=== PATIENT | female | born 1955 | race Caucasian/White ===

== ENCOUNTER → 2017-07-26 11:05 | Outpatient (CLI) | payer BC, SELFPAY ==
--- NOTE | 2017-07-26 11:12 | XR_ITS ---
XR ankle LT min 3V HISTORY: ITS.REASON: LT ANKLE PAIN ORDERING PHYSICIAN: Tammie Calzada PATIENT AGE: 62 years COMPARISON: None FINDINGS: No fracture or dislocation. No lytic or blastic change. There is normal mineralization.. The joint spaces are well-preserved. No significant degenerative/arthritic changes. No erosive changes evident. IMPRESSION: Negative ankle, no acute finding
== END ==
PROVIDERS: PCP Family Medicine; Visit Provider Nurse Practitioner
DX: M25.572 Pain in left ankle and joints of left foot (principal)
CPT/HCPCS: 73610

== ENCOUNTER 2017-08-02 09:19 | Outpatient (RCR) | payer BC, SELFPAY ==
--- NOTE | 2017-08-02 11:09 | HMH.PTOPEV ---
Rehab Outpatient Evaluation Rehab OP Evaluation Start: 08/02/17 09:35 Freq: Status: Active Protocol: Document 08/02/17 11:04 BENNY (Rec: 08/02/17 11:09 PHOAGUSTINA [id number]) Electronically Signed By Jonathon Becerra, PT 08/02/17 11:04 Outpatient Therapy Subjective History Subjective History Pt presents with c/o left ankle pain x 2-3 mos overall, but very severe episode ~ 1 wk with insidious onset. She had x-ray performed which was negative for any fxs or OA. She reports since that episode she has had no pain and is currently feeling fine. She has PMH of HTN. Chief Complaint Pain Symptom Type Sharp Symptoms Relieved By Nothing Symptoms Aggravated By Physical Activity Prior Functional Limitations None Current Functional Limitations None Symptom Description Intermittent Level of pain today (0-10) 0 Pain scale - at its worst (0-10) 9 Ankle/Foot Eval Gait Observation General Gait Pattern Observation No Deviations/Normal Assistive Device Ambulation Assistive Device None ROM left Ankle/Foot ROM Reason Not Measured Within Functional Limits Great Toe ROM Reason Not Measured Within Functional Limits MMT right Ankle Dorsiflexion Strength Grade 5 Normal Ankle Plantarflexion Strength Grade 5 Normal Foot Eversion Strength Grade 5 Normal Foot Inversion Strength Grade 5 Normal Special Tests Ankle Anterior Drawer Test Negative Left Ankle Eversion Test Negative Left Talar Tilt Test Negative Left Ankle Inversion (supination) Test Negative Left Ankle Posterior Drawer Test Negative Left Neuro tests Achilles Tendon (R) 2+ Achilles Tendon (L) 2+ Outpatient Therapy Assessment Impairments Problems/Impairmments Subjective C/O Pain Impaired Self Care/Self Management Prognosis Rehab Potential Good Clinical Impression Consistent with Diagnosis Yes Outpatient Therapy Plan of Care Frequency Times per week 0 Duration Number of Weeks 0 Addendums This patient is a candidate for social No or vocational rehab? Patient/Guardian verbally acknowledges Yes understanding of treatment program and consents to further treatment? Patient/Guardian verbally acknowledges Yes understanding of diagnosis, prognosis and goals for treatment? G -code Required No Eval Complexity PT Charges 97
== END 2017-08-02 09:20 | disposition home or self-care (01) ==
LOC: PT 09:19
PROVIDERS: Family Provider Family Medicine; PCP Family Medicine; Visit Provider Nurse Practitioner
DX: M25.572 Pain in left ankle and joints of left foot (principal)

== ENCOUNTER → 2017-09-04 12:38 | Outpatient (CLI) | payer BC, SELFPAY ==
[2017-09-04 12:44] LABS: Adenovirus F 40/41, stool Not Detected (NotDetected); Astrovirus Not Detected (NotDetected); Campylobacter Not Detected (NotDetected); Cryptosporidium Not Detected (NotDetected); Cyclospora Cayetanesis Not Detected (NotDetected); Entamoeba histolytica Not Detected (NotDetected); Enteroaggregative E coli Not Detected (NotDetected); Enteropathogenic E coli Not Detected (NotDetected); Enterotoxigenic E coli Not Detected (NotDetected); Giardia lamblia Not Detected (NotDetected); Norovirus Not Detected (NotDetected); Plesimonas Shigalloides, PCR Not Detected (NotDetected); Salmonella, PCR Not Detected (NotDetected); Sapovirus Not Detected (NotDetected); Shiga-like toxin E coli Not Detected (NotDetected); Shigella Enterovasive E coli Not Detected (NotDetected); Vibrio Cholerae Not Detected (NotDetected); Vibrio, PCR Not Detected (NotDetected); Yersinia Entercolitica, PCR Not Detected (NotDetected)
[2017-09-04 20:40] LABS: Clostridium Difficile A/B, PCR Detected (NotDetected); Rotavirus A Detected (NotDetected)
== END ==
PROVIDERS: Visit Provider Family Medicine
DX: R19.7 Diarrhea, unspecified (principal)
CPT/HCPCS: 87507

== ENCOUNTER → 2017-09-15 12:48 | Outpatient (CLI) | payer BC, SELFPAY ==
--- NOTE | 2017-09-15 12:52 | MR_ITS ---
MR ankle LT wo con CLINICAL INDICATION: Left ankle pain and instability ITS.REASON: LEFT ANKLE INSTABILITY ORDERING PHYSICIAN: Tammie Calzada PATIENT AGE: 62 years Comparison: 07/26/2018 TECHNIQUE: Routine multiplanar multiecho sequences are performed without contrast. The report is delayed waiting on repeat images are made available on 10/05/2017 FINDINGS: There is a small ankle joint effusion. No ligamentous or tendinous injury noted. No abnormal bone marrow signal intensity. No fracture or dislocation. There is no evidence of avascular necrosis of the talar dome. Small amount of fluid is noted along the lateral talonavicular region and also posteriorly at the talocalcaneal area. IMPRESSION: 1. No ligamentous or tendinous injuries apparent. No bone marrow edema or other bony anomalies evident. 2. Small ankle joint effusion with small amount fluid along the talonavicular area and talocalcaneal region suggesting bursitis
== END ==
PROVIDERS: Family Provider Family Medicine; PCP Family Medicine; Visit Provider Nurse Practitioner
DX: M25.372 Other instability, left ankle (principal)
CPT/HCPCS: 73721

== ENCOUNTER → 2017-10-11 07:55 | Outpatient (CLI) | payer BC, SELFPAY | PROVIDERS: Visit Provider Nurse Practitioner Family | DX: R19.7 Diarrhea, unspecified (principal); A04.72 Enterocolitis due to Clostridium difficile, not specified as recurrent | CPT/HCPCS: 87045; 87493 ==

== ENCOUNTER → 2019-07-05 09:36 | Outpatient (CLI) | payer MEDICARE, BC, SELFPAY ==
--- NOTE | 2019-07-05 09:42 | XR_ITS ---
PROCEDURE: XR SHOULDER LT MIN 2V CLINICAL INDICATION: left shoulder Pain COMPARISON: No exams were available for comparison FINDINGS: No fracture, dislocation, lytic change, or blastic change evident. No significant degenerative change IMPRESSION: No acute findings. Dictated by: Dago Diaz MD 07/05/2019 11:36 Electronically signed by Dago Diaz MD in [facility] 07/05/2019 11:36
== END ==
PROVIDERS: PCP Family Medicine; Visit Provider Orthopaedic Surgery
DX: M25.512 Pain in left shoulder (principal)
CPT/HCPCS: 73030

== ENCOUNTER → 2021-05-06 16:15 | Outpatient (CLI) | payer MEDICARE, BC, SELFPAY | PROVIDERS: Visit Provider Nurse Practitioner | DX: Z20.822 Contact with and (suspected) exposure to COVID-19 (principal) | CPT/HCPCS: C9803; U0003; U0005 ==

== ENCOUNTER → 2021-09-11 11:03 | Outpatient (CLI) | payer MEDICARE, BC, SELFPAY | PROVIDERS: Visit Provider Ophthalmology | DX: Z01.812 Encounter for preprocedural laboratory examination (principal); Z11.52 Encounter for screening for COVID-19 | CPT/HCPCS: C9803; U0003; U0005 ==

== ENCOUNTER 2021-09-14 06:24 | Day surgery (SDC) | payer MEDICARE, BC, SELFPAY ==
[2021-09-09 13:50] VITALS: BMI 27.4
[2021-09-14] VITALS (9 sets, daily range): BP systolic 141–164; BP diastolic 65–82; PULSE 62–78; RESP 16–18; TEMP 36.6–36.7; O2SAT 97–100
== END 2021-09-14 08:13 | disposition home or self-care (01) ==
LOC: OR 06:25
PROVIDERS: PCP Nurse Practitioner Family; Visit Provider Ophthalmology
DX: H25.813 Combined forms of age-related cataract, bilateral (principal); H53.149 Visual discomfort, unspecified; H02.831 Dermatochalasis of right upper eyelid; H02.834 Dermatochalasis of left upper eyelid; I10 Essential (primary) hypertension; E78.5 Hyperlipidemia, unspecified; I49.9 Cardiac arrhythmia, unspecified; M19.90 Unspecified osteoarthritis, unspecified site; E03.9 Hypothyroidism, unspecified; Z79.899 Other long term (current) drug therapy; Z87.891 Personal history of nicotine dependence; Z72.89 Other problems related to lifestyle
CPT/HCPCS: 66984; V2632

== ENCOUNTER → 2021-09-25 09:08 | Outpatient (CLI) | payer MEDICARE, BC, SELFPAY | PROVIDERS: Visit Provider Ophthalmology | DX: Z01.812 Encounter for preprocedural laboratory examination (principal); Z20.822 Contact with and (suspected) exposure to COVID-19 | CPT/HCPCS: C9803; U0003; U0005 ==

== ENCOUNTER 2021-09-28 06:22 | Day surgery (SDC) | payer MEDICARE, BC, SELFPAY ==
[2021-09-28 06:43] VITALS: BP 139/68; PULSE 73; RESP 18; TEMP 36.6; O2SAT 96; BMI 27.4
[2021-09-28 08:02] VITALS: BP 155/75; PULSE 69; RESP 18; O2SAT 95
[2021-09-28 08:07] VITALS: BP 148/72; PULSE 66; RESP 18; O2SAT 100
[2021-09-28 08:12] VITALS: BP 148/77; PULSE 65; RESP 18; O2SAT 100
[2021-09-28 08:15] VITALS: BP 144/73; PULSE 67; RESP 18; O2SAT 100
[2021-09-28 08:20] VITALS: BP 148/80; PULSE 60; RESP 16; TEMP 36.6; O2SAT 97
== END 2021-09-28 08:26 | disposition home or self-care (01) ==
LOC: OR 06:24
PROVIDERS: PCP Nurse Practitioner Family; Visit Provider Ophthalmology
DX: H25.813 Combined forms of age-related cataract, bilateral (principal); H02.831 Dermatochalasis of right upper eyelid; H02.834 Dermatochalasis of left upper eyelid
CPT/HCPCS: 66984; V2632

== ENCOUNTER → 2022-07-22 07:38 | Outpatient (CLI) | payer MEDICARE, BC, SELFPAY ==
[2022-07-22 07:43] LABS: Microscopic, Urine URINE MICROSCOPIC (MICROSCOPIC)
[2022-07-22 07:59] LABS: Appearance,Urine CLEAR (Clear); Basophils # 0.1 K/mm3 (0-0.2); Basophils % 1.1 % (0.1-2.0); Bilirubin,Urine Negative (Negative); Blood, Urine Negative (Negative); Color,Urine YELLOW (Yellow); Eosinophils # 0.3 K/mm3 (0.0-0.4); Eosinophils % 4.5 % (0.1-12.0); Glucose,Urine (UA) Negative (Negative); Hematocrit 42.2 % (37.0-47.0); Ketones,Urine Negative (Negative); Leukocyte Esterase,Urine 1+ (Negative); Lymphocytes # 2.4 K/mm3 (0.7-4.5); Lymphocytes % 31.2 % (10-50); Mean Corpuscular HGB Conc 33.1 g/dL (31.8-35.4); Mean Corpuscular Hemoglobin 29.6 pg (27.0-31.2); Mean Corpuscular Volume 89.5 fl (81-99); Mean Platelet Volume 7.7 fl (7.4-10.4); Monocytes # 0.4 K/mm3 (0.1-1.0); Monocytes % 4.8 % (1.7-9.3); Neutrophils # 4.5 K/mm3 (1.8-7.8); Neutrophils % 58.4 % (37.0-80.0); Nitrate,Urine Negative (Negative); Platelet Count 357 K/mm3 (142-424); Protein,Urine Negative (Negative); Red Blood Count 4.72 M/mm3 (4.20-5.40); Red Cell Distribution Width 13.7 % (11.5-17.5); Urobilinogen,Urine 0.2 EU/dl (0.2); White Blood Count 7.7 K/mm3 (4.8-10.8)
[2022-07-22 08:11] LABS: Bacteria,Urine Trace /lpf; Squamous Epithelial Cell,Urine Occasional #/hpf (0-5); WBC,Urine Occasional #/hpf (0-3)
[2022-07-22 08:19] LABS: Alanine Aminotransferase 43 U/L (12-78); Albumin Level 4.2 g/dl (3.5-5.0); Albumin/Globulin Ratio 1.8 (1.1-1.8); Alkaline Phosphatase 92 U/L (38-126); Aspartate Amino Transferase 34 U/L (14-36); Bilirubin,Total 0.8 mg/dl (0.2-1.3); Blood Urea Nitrogen 16 mg/dl (7-17); Calcium 9.4 mg/dl (8.4-10.2); Carbon Dioxide 32 mmol/L (22.0-30.0); Chloride 101 mmol/L (98-107); Chol/HDL Ratio 2.9 (1-3.5); Cholesterol 167 mg/dl (140-200); Estimated Glomerular Filt Rate 71 ml/min (>60); GFR (African American) 86 ML/MIN (>60); Globulin 2.3 g/dL (1.3-3.2); Glucose 102 mg/dl (74-100); HDL Cholesterol 58 mg/dl (40-60); Sodium 138 mmol/L (136-145); Total Protein,Serum 6.5 g/dl (6.3-8.2); Triglycerides 117 mg/dl (30-150); VLDL Cholesterol 23 mg/dL (0-40)
[2022-07-22 08:30] LABS: Direct LDL Cholesterol 86.55 mg/dL (100-129)
[2022-07-22 08:35] LABS: 25-OH Vitamin D, Total 46.4 ng/mL (30-100)
== END ==
PROVIDERS: PCP Family Medicine; Visit Provider Family Medicine
DX: E03.9 Hypothyroidism, unspecified (principal); I10 Essential (primary) hypertension; E78.5 Hyperlipidemia, unspecified; N32.81 Overactive bladder; M85.80 Other specified disorders of bone density and structure, unspecified site; Z00.00 Encounter for general adult medical examination without abnormal findings; R82.90 Unspecified abnormal findings in urine
CPT/HCPCS: 36415; 80053; 80061; 81001; 82306; 84443; 85025; 87086

== ENCOUNTER → 2022-09-05 07:46 | Outpatient (CLI) | payer MEDICARE, BC, SELFPAY | PROVIDERS: PCP Family Medicine; Visit Provider Family Medicine | DX: I10 Essential (primary) hypertension (principal) | CPT/HCPCS: 36415; 84443 ==

== ENCOUNTER → 2022-09-30 15:07 | Outpatient (CLI) | payer MEDICARE, BC, SELFPAY ==
--- NOTE | 2022-09-30 15:07 | MM_ITS ---
PROCEDURE INFORMATION: Exam: MG Bilateral Screening 3D Mammography Exam date and time: 09/30/2022 2:59 PM Age: 67 years old Clinical indication: Screening. No family history of breast cancer. TECHNIQUE: Imaging protocol: Bilateral Screening tomosynthesis and 2D mammography including computer-aided detection (CAD) when performed. COMPARISON: 1. MG MY Digital Nicolas Screen BILAT 08/11/2021 10:05 AM 2. MG MY Digital Nicolas Screen BILAT 07/21/2020 10:46 AM Both are apparently corrupted files which significantly limits comparison. FINDINGS: MAMMOGRAPHY: Breast composition: The breasts are heterogeneously dense, which may obscure small masses. Mass: Lobulated 1.5 cm mass with macro calcification in the inner right breast appears stable since 07/21/2020. Architectural distortion: None. Calcifications: No suspicious calcifications. Asymmetric density: None. Skin thickening: None. Axillary adenopathy: None. IMPRESSION: No mammographic evidence of malignancy. Annual screening is recommended unless otherwise clinically indicated. ASSESSMENT: BI-RADS Category 2: Benign
== END ==
PROVIDERS: PCP Family Medicine; Visit Provider Family Medicine
DX: Z12.31 Encounter for screening mammogram for malignant neoplasm of breast (principal)
CPT/HCPCS: 77063; 77067

== ENCOUNTER → 2023-03-17 08:06 | Outpatient (CLI) | payer MEDICARE, BC, SELFPAY ==
[2023-03-17 08:10] LABS: Microscopic, Urine URINE MICROSCOPIC (MICROSCOPIC)
[2023-03-17 09:34] LABS: Alanine Aminotransferase 28 U/L (12-78); Albumin Level 4.3 g/dl (3.5-5.0); Albumin/Globulin Ratio 1.7 (1.1-1.8); Alkaline Phosphatase 99 U/L (38-126); Anion Gap 10.9 mEq/L (5-15); Aspartate Amino Transferase 34 U/L (14-36); Bilirubin,Total 0.8 mg/dl (0.2-1.3); Blood Urea Nitrogen 16 mg/dl (7-17); Calcium 9.8 mg/dl (8.4-10.2); Carbon Dioxide 33 mmol/L (22.0-30.0); Chloride 99 mmol/L (98-107); Chol/HDL Ratio 3.1 (1-3.5); Cholesterol 172 mg/dl (140-200); Estimated Glomerular Filt Rate 55 ml/min (>60); GFR (African American) 67 ML/MIN (>60); Globulin 2.5 g/dL (1.3-3.2); Glucose 101 mg/dl (74-100); HDL Cholesterol 56 mg/dl (40-60); Potassium 3.9 mmoL/L (3.5-5.1); Sodium 139 mmol/L (136-145); Total Protein,Serum 6.8 g/dl (6.3-8.2); Triglycerides 121 mg/dl (30-150); VLDL Cholesterol 24 mg/dL (0-40)
[2023-03-17 09:45] LABS: Direct LDL Cholesterol 83.34 mg/dL (100-129)
[2023-03-17 10:03] LABS: Thyroid Stimulating Hormone 5.82 uIU/mL (0.465-4.68)
[2023-03-17 11:34] LABS: Appearance,Urine CLEAR (Clear); Bilirubin,Urine Negative (Negative); Blood, Urine Negative (Negative); Color,Urine YELLOW (Yellow); Glucose,Urine (UA) Negative (Negative); Ketones,Urine Negative (Negative); Leukocyte Esterase,Urine TRACE (Negative); Nitrate,Urine Negative (Negative); Protein,Urine Negative (Negative); Specific Gravity, Urine 1.025 (1.005-1.030); Urobilinogen,Urine 0.2 EU/dl (0.2)
[2023-03-17 11:56] LABS: Bacteria,Urine Trace /lpf; Squamous Epithelial Cell,Urine Occasional #/hpf (0-5); WBC,Urine Occasional #/hpf (0-3)
== END ==
PROVIDERS: PCP Internal Medicine; Visit Provider Family Medicine
DX: I10 Essential (primary) hypertension (principal); N32.81 Overactive bladder; Z13.6 Encounter for screening for cardiovascular disorders; E03.9 Hypothyroidism, unspecified; Z79.899 Other long term (current) drug therapy
CPT/HCPCS: 36415; 80053; 80061; 81001; 84443

== ENCOUNTER 2023-06-02 08:07 | Outpatient (CLI) | payer MEDICARE, BC, SELFPAY ==
[2023-06-02 09:10] LABS: Free T4 (Free Thyroxine) 1.39 ng/dl (0.78-2.19)
[2023-06-02 09:23] LABS: Thyroid Stimulating Hormone 5.81 uIU/mL (0.465-4.68)
== END 2023-06-02 23:59 ==
PROVIDERS: PCP Internal Medicine; Visit Provider Internal Medicine
DX: E03.9 Hypothyroidism, unspecified (principal); Z13.29 Encounter for screening for other suspected endocrine disorder
CPT/HCPCS: 36415; 84439; 84443

== ENCOUNTER 2023-10-03 16:48 | Outpatient (CLI) | payer MEDICARE, BC, SELFPAY ==
[2023-10-03 17:19] LABS: Basophils # 0.1 K/mm3 (0-0.2); Basophils % 0.6 % (0.1-2.0); Eosinophils # 0.2 K/mm3 (0.0-0.4); Eosinophils % 2.6 % (0.1-12.0); Hematocrit 40.5 % (37.0-47.0); Hemoglobin 13.6 g/dL (12.2-16.2); Lymphocytes # 2.6 K/mm3 (0.7-4.5); Lymphocytes % 30.4 % (10-50); Mean Corpuscular HGB Conc 33.5 g/dL (31.8-35.4); Mean Corpuscular Hemoglobin 30.5 pg (27.0-31.2); Mean Corpuscular Volume 91.2 fl (81-99); Mean Platelet Volume 8.7 fl (7.4-10.4); Monocytes # 0.4 K/mm3 (0.1-1.0); Monocytes % 4.3 % (1.7-9.3); Neutrophils # 5.3 K/mm3 (1.8-7.8); Neutrophils % 62.2 % (37.0-80.0); Platelet Count 324 K/mm3 (142-424); Red Blood Count 4.44 M/mm3 (4.20-5.40); Red Cell Distribution Width 13.8 % (11.5-17.5); White Blood Count 8.4 K/mm3 (4.8-10.8)
[2023-10-03 17:42] LABS: Alanine Aminotransferase 25 U/L (12-78); Albumin Level 4.3 g/dl (3.5-5.0); Albumin/Globulin Ratio 1.6 (1.1-1.8); Alkaline Phosphatase 108 U/L (38-126); Anion Gap 11.3 mEq/L (5-15); Aspartate Amino Transferase 32 U/L (14-36); Bilirubin,Total 0.7 mg/dl (0.2-1.3); Blood Urea Nitrogen 17 mg/dl (7-17); Calcium 9.9 mg/dl (8.4-10.2); Carbon Dioxide 32 mmol/L (22.0-30.0); Chloride 98 mmol/L (98-107); Estimated Glomerular Filt Rate 55 ml/min (>60); GFR (African American) 66 ML/MIN (>60); Globulin 2.7 g/dL (1.3-3.2); Glucose 93 mg/dl (74-100); Potassium 4.3 mmoL/L (3.5-5.1); Sodium 137 mmol/L (136-145)
[2023-10-03 18:00] LABS: T4 (Thyroxine) 7.4 ug/dl (5.53-11.0)
[2023-10-03 18:33] LABS: Vitamin B12 923 pg/mL (239-931)
[2023-10-05 08:32] LABS: Triiodothyronine (T3) Free 2.5 pg/mL (2.0-4.4)
== END 2023-10-03 23:59 | disposition home or self-care (01) ==
LOC: LAB.DROPOF 16:49
PROVIDERS: PCP Nurse Practitioner Family; Visit Provider Nurse Practitioner Family
DX: E03.9 Hypothyroidism, unspecified (principal); M85.80 Other specified disorders of bone density and structure, unspecified site; I10 Essential (primary) hypertension; E78.5 Hyperlipidemia, unspecified; K21.9 Gastro-esophageal reflux disease without esophagitis; E55.9 Vitamin D deficiency, unspecified
CPT/HCPCS: 80053; 82306; 82607; 84436; 84443; 84481; 85025

== ENCOUNTER 2023-10-10 14:08 | Outpatient (CLI) | payer MEDICARE, BC, SELFPAY ==
--- NOTE | 2023-10-10 14:08 | US_ITS ---
FINAL REPORT CLINICAL HISTORY: HTN FINDINGS: Limited sonographic images of the abdominal aorta were obtained. The abdominal aorta measures up to 1 9 cm. There is no evidence of abdominal aortic aneurysm. IMPRESSION: No evidence of abdominal aortic aneurysm. Reviewed, Interpreted and Dictated by Tam Bhatia III, MD Transcribed by Doreen Regan Authenticated and [facility]
--- NOTE | 2023-10-10 14:28 | CA_ITS ---
FINAL REPORT TECHNIQUE: Color Doppler, duplex Doppler and lundberg scale sonography of the bilateral neck arterial vasculature was performed. Velocities were measured in the carotid arteries. Stenosis evaluation based on the validated velocity criteria. CLINICAL HISTORY: DIZZINESS,HTN FINDINGS: The peak systolic velocity of the right common carotid artery is 68 cm/s. The peak systolic velocity of the right internal carotid artery is 112 cm/s and end diastolic velocity 36 cm/s. The ICA/CCA ratio is 1.8. A small amount of plaque is present. The right external carotid artery is patent. The right vertebral artery is patent with antegrade flow. The peak systolic velocity of the left common carotid artery is 83 cm/s. The peak systolic velocity of the left internal carotid artery is 110 cm/s and end diastolic velocity 42 cm/s. The ICA/CCA ratio is 1.3. A small amount of plaque is present. The left external carotid artery is patent.The left vertebral artery is patent with antegrade flow. IMPRESSION: Less than 50% bilateral carotid stenoses. Bilateral patent vertebral arteries with antegrade flow. If indicated, CTA or MRA could further evaluate. Reviewed, Interpreted and Dictated by Tam Bhatia III, MD Transcribed by Doreen Regan Authenticated and [facility]
== END 2023-10-10 23:59 | disposition home or self-care (01) ==
LOC: RAD 14:08
PROVIDERS: PCP Nurse Practitioner Family; Visit Provider Nurse Practitioner Family
DX: I10 Essential (primary) hypertension (principal); E78.5 Hyperlipidemia, unspecified; R42 Dizziness and giddiness
CPT/HCPCS: 76705; 93880

== ENCOUNTER 2023-11-03 08:10 | Outpatient (CLI) | payer MEDICARE, BC, SELFPAY ==
--- NOTE | 2023-11-03 08:10 | MM_ITS ---
PROCEDURE INFORMATION: Exam: MG Bilateral Screening 3D Mammography Exam date and time: 11/03/2023 8:06 AM Age: 68 years old Clinical indication: Screening mammogram. TECHNIQUE: Imaging protocol: Bilateral Screening tomosynthesis and 2D mammography including computer-aided detection (CAD) when performed. COMPARISON: 08/11/2021, 09/30/2022 FINDINGS: MAMMOGRAPHY: Breast composition: There are scattered areas of fibroglandular density. Mass: Stable benign-appearing subcentimeter nodules are present in the lower outer anterior right breast. No new or morphologically suspicious nodule has developed to suggest malignancy. Architectural distortion: No new or suspicious architectural distortion. Calcifications: No new or suspicious calcifications are present Asymmetric density: No new or suspicious asymmetric density is present Skin thickening: None. Axillary adenopathy: None. IMPRESSION: No mammographic evidence of malignancy. Recommend annual screening mammography unless otherwise clinically indicated. ASSESSMENT: BI-RADS category 2: Benign.
--- NOTE | 2023-11-03 08:45 | XR_ITS ---
FINAL REPORT CLINICAL HISTORY: Osteopenia COMPARISON: None FINDINGS: Using L1-4, the bone mineral density of the spine is 1.116 g/cm2, corresponding to T-score of 0.6 which is within normal limits. Using the left hip, the bone mineral density of the femoral neck is 0.824 g/cm2, corresponding to a T-score of -1.0 which is borderline osteopenic. Using the right hip, the bone mineral density of the femoral neck is 0.758 g/cm2, corresponding to a T-score of -0.8 which is within normal limits. FRAX not reported because all T-scores at or above -1.0. NOTE: T-score: Standard deviation compared with peak bone mass of young adult mean. *Following the recommendations of the International Society of Bone densitometry, classification of hip BMD is based on the lower of two T-scores; total hip or femoral neck. IMPRESSION: Normal bone mineral density of the lumbar spine and hips, borderline osteopenic on the left. Reviewed, Interpreted and Dictated by Mora Ernandez MD Transcribed by Za Lomeli Authenticated and [facility]
== END 2023-11-03 23:59 | disposition home or self-care (01) ==
LOC: RAD 08:10
PROVIDERS: PCP Nurse Practitioner Family; Visit Provider Nurse Practitioner Family
DX: Z12.31 Encounter for screening mammogram for malignant neoplasm of breast (principal); M85.89 Other specified disorders of bone density and structure, multiple sites
CPT/HCPCS: 77063; 77067; 77080

== ENCOUNTER 2024-01-01 13:04 | Outpatient (CLI) | payer MEDICARE, BC, SELFPAY ==
[2024-01-01 13:51] LABS: T4 (Thyroxine) 9.7 ug/dl (5.53-11.0)
[2024-01-01 14:05] LABS: Thyroid Stimulating Hormone 2.45 uIU/mL (0.465-4.68)
[2024-01-02 08:19] LABS: Triiodothyronine (T3) Free 2.6 pg/mL (2.0-4.4)
== END 2024-01-01 23:59 | disposition home or self-care (01) ==
LOC: LAB.DROPOF 13:05
PROVIDERS: PCP Nurse Practitioner Family; Visit Provider Nurse Practitioner Family
DX: E03.9 Hypothyroidism, unspecified (principal)
CPT/HCPCS: 84436; 84443; 84481

== ENCOUNTER 2024-01-03 07:38 | Outpatient (CLI) | payer MEDICARE, BC, SELFPAY ==
--- NOTE | 2024-01-03 07:39 | US_ITS ---
FINAL REPORT CLINICAL HISTORY: ruq pain FINDINGS: ULTRASOUND RIGHT UPPER QUADRANT Sonographic imaging of the right upper quadrant was obtained. The pancreas is partially obscured. The liver is unremarkable. There is no evidence of gallstones. There is no gallbladder wall thickening. There is no biliary ductal dilatation. The common duct is normal at 2 mm. Limited images of the right kidney are unremarkable. IMPRESSION: Unremarkable right upper quadrant ultrasound. Reviewed, Interpreted and Dictated by Vikash Camp MD Transcribed by Fariba Hayward Authenticated and [facility]
== END 2024-01-03 23:59 | disposition home or self-care (01) ==
LOC: RAD 07:39
PROVIDERS: PCP Nurse Practitioner Family; Visit Provider Nurse Practitioner Family
DX: R10.11 Right upper quadrant pain (principal); R11.0 Nausea
CPT/HCPCS: 76705

== ENCOUNTER 2024-03-21 14:35 | Outpatient (CLI) | payer MEDICARE, BC, SELFPAY ==
--- NOTE | 2024-03-21 14:42 | XR_ITS ---
FINAL REPORT CLINICAL HISTORY: low back pain x 1 week hx arthritis FINDINGS: PELVIS 1 view was obtained. There is no acute fracture or dislocation. The joint spaces are intact. There is no soft tissue abnormality. IMPRESSION: No acute bony abnormality. Reviewed, Interpreted and Dictated by Tam Bhatia III, MD Transcribed by Fariba Hayward Authenticated and [facility]
--- NOTE | 2024-03-21 14:42 | XR_ITS ---
FINAL REPORT CLINICAL HISTORY: low back pain x 1 week hx arthritis FINDINGS: LUMBAR SPINE 3 views were obtained. There is no acute fracture. Vertebrae are normal height. There are moderate and severe degenerative changes. Dextroscoliosis is noted. There is vacuum phenomenon at several levels. Soft tissues are unremarkable. IMPRESSION: Degenerative changes with no acute bony abnormality. Reviewed, Interpreted and Dictated by Tam Bhatia III, MD Transcribed by Fariba Hayward Authenticated and [facility]
== END 2024-03-21 23:59 | disposition home or self-care (01) ==
LOC: RAD 14:38
PROVIDERS: PCP Internal Medicine; Visit Provider Internal Medicine
DX: M54.50 Low back pain, unspecified (principal); M25.559 Pain in unspecified hip
CPT/HCPCS: 72100; 72170

== ENCOUNTER 2024-04-10 12:48 | Outpatient (CLI) | payer MEDICARE, BC, SELFPAY ==
--- NOTE | 2024-04-10 12:49 | MR_ITS ---
FINAL REPORT CLINICAL HISTORY: Low back pain, bulging disk. BILATERAL LEG PAIN AND NUMBNESS COMPARISON: None FINDINGS: Multiplanar MR imaging of the lumbar spine was performed without contrast. Mild rightward curvature is noted of the lumbosacral spine. On the sagittal T2-weighted images, disc degeneration is seen throughout. There is mild anterolisthesis of L3 on L4. Endplate changes are seen at multiple levels. No bony mass is identified. The conus has an unremarkable appearance. T12-L1: There is no significant canal stenosis or neuroforaminal narrowing. L1-2: Annular disc bulge and facet arthropathy. There is no significant canal stenosis or neural foraminal narrowing. L2-3: Annular disc bulge, facet arthropathy, and osteophytes. Mild bilateral neuroforaminal narrowing. L3-4: Annular disc bulge, facet arthropathy, and osteophytes. Mild right and moderate left neuroforaminal narrowing. L4-5: Annular disc bulge and facet arthropathy. Left foraminal disc protrusion. Mild right and severe left neuroforaminal narrowing. L5-S1: Annular disc bulge, facet arthropathy, and osteophytes. Moderate bilateral neuroforaminal narrowing IMPRESSION: Multilevel degenerative disc disease and spondylosis as described. L4-5 disc protrusion with severe left neuroforaminal narrowing. Reviewed, Interpreted and Dictated by Tam Bhatia III, MD Transcribed by Za Lomeli Authenticated and [facility]
== END 2024-04-10 23:59 | disposition home or self-care (01) ==
LOC: RAD 12:49
PROVIDERS: PCP Internal Medicine; Visit Provider Internal Medicine
DX: M51.360 Other intervertebral disc degeneration, lumbar region with discogenic back pain only (principal)
CPT/HCPCS: 72148

== ENCOUNTER 2024-04-16 15:51 | Outpatient (CLI) | payer MEDICARE, BC, SELFPAY ==
--- NOTE | 2024-04-16 15:54 | XR_ITS ---
PROCEDURE INFORMATION: Exam: XR Right Shoulder Exam date and time: 04/16/2024 4:06 PM Age: 69 years old Clinical indication: Pain; Shoulder; Right; Additional info: Shoulder pain TECHNIQUE: Imaging protocol: Radiologic exam of the right shoulder. Views: 2 or more views. COMPARISON: CR XR SHOULDER RT MIN 2V 04/16/2024 4:06 PM FINDINGS: Bones/joints: The glenohumeral joint shows mild joint space narrowing. There are small osteophytes at the joint margins, particularly at the inferior aspect of the humeral head and the glenoid. Subchondral sclerosis is noted at the humeral head and glenoid. The acromioclavicular (AC) joint also demonstrates mild joint space narrowing and small osteophytes. No acute fracture or dislocation is identified. The visualized portions of the ribs, scapula, and clavicle are intact and demonstrate normal bone density. Soft tissues: The soft tissues appear unremarkable. No evidence of significant soft tissue swelling or calcification. IMPRESSION: 1. Mild degenerative changes of the glenohumeral and acromioclavicular joints consistent with early osteoarthritis. 2. No evidence of acute osseous injury or significant soft tissue abnormality.
--- NOTE | 2024-04-16 15:54 | XR_ITS ---
PROCEDURE INFORMATION: Exam: XR Left Shoulder Exam date and time: 04/16/2024 4:06 PM Age: 69 years old Clinical indication: Pain; Shoulder; Left; Additional info: Shoulder pain TECHNIQUE: Imaging protocol: Radiologic exam of the left shoulder. Views: 2 or more views. COMPARISON: CR XR SHOULDER LT MIN 2V 07/05/2019 9:43 AM FINDINGS: Bones/joints: The glenohumeral joint shows mild joint space narrowing. There are small osteophytes at the joint margins, particularly at the inferior aspect of the humeral head and the glenoid. Subchondral sclerosis is noted at the humeral head and glenoid. The acromioclavicular (AC) joint also demonstrates mild joint space narrowing and small osteophytes. No acute fracture or dislocation is identified. The visualized portions of the ribs, scapula, and clavicle are intact and demonstrate normal bone density. Soft tissues: The soft tissues appear unremarkable. No evidence of significant soft tissue swelling or calcification. IMPRESSION: 1. Mild degenerative changes of the glenohumeral and acromioclavicular joints consistent with early osteoarthritis. 2. No evidence of acute osseous injury or significant soft tissue abnormality.
[2024-04-16 17:44] LABS: Erythrocyte Sedimentation Rate 135 mm/hr (0-30)
[2024-04-16 18:12] LABS: Uric Acid 5.2 mg/dl (2.5-6.2)
[2024-04-18 13:30] LABS: Antinuclear Antibodies (ANA) Negative (Negative)
[2024-04-19 09:18] LABS: Antinuclear Antibodies, IFA Negative (.)
== END 2024-04-16 23:59 | disposition home or self-care (01) ==
LOC: LAB 15:52
PROVIDERS: PCP Internal Medicine; Visit Provider Internal Medicine
DX: M25.511 Pain in right shoulder (principal); M25.512 Pain in left shoulder; R11.0 Nausea; M79.643 Pain in unspecified hand; R53.83 Other fatigue
CPT/HCPCS: 73030; 84550; 85651; 86038; 86431

== ENCOUNTER 2024-04-23 15:00 | Outpatient (RCR) | payer MEDICARE, BC, SELFPAY ==
--- NOTE | 2024-04-23 15:53 | HMH.RHREAS ---
Rehab Reassessment Rehab OP Re-assessment Start: 03/26/24 15:02 Freq: Status: Active Protocol: Document 04/23/24 14:55 JOSELIN (Rec: 04/23/24 15:52 JERRODMALINI [id number]) E-signed By Karmen Renteria, PT Oswestry Index Section 1 Pain Intensity The pain comes and goes and is very mild Section 2 Personal Care (Washing,Dresing) my way of washing or dressing even though it causes some pain Section 3 Lifting I can lift heavy weights, but it gives me extra pain Section 4 Walking I have some pain when walking but it does not increase with distance Section 5 Sitting I can sit in my favorite chair for as long as I like Section 6 Standing I can stand as long as I want without pain Section 7 Sleeping I get pain in bed, but it does not prevent me from sleeping well Section 8 Social Life Pain has no significant effect on my social life apart from limiting Section 9 Traveling I get some pain when traveling , but none of my usual forms of travel m Section 10 Changing Degreee of Pain My pain is getting better Score and Risk Level Oswestry Sc 8 Oswestry Risk Level Mild Disability Rehab Re-assessment Subjective Subjective Pt reports she feels 75% improved in regards to LBP. Pt reports she is no longer experiencing radiating pain into her leg and only experiences stiffness of the low back after periods of prolonged inactivity. Pt reports her back gets stiff after prolonged sitting but quickly improves with walking or stretching. Pt reports LBP at worst as 2/10 on VAS within the last week. Pt reports her shoulders, wrist and hands are now bothering her more than her back. Objective Objective Notes Palpation: no TTP of low back musculature or motion segments noted Lumbar AROM: flex 90, ext 18, LF 12 Hip strength: 4+/5 grossly Assessment Progress Assessment Progressing as Expected Assessment Notes Pt has attended 7 PT treatment sessions consisting of aerobic exercise, lumbar mobility, LE/core strengthening, LE stretching, manual therapy and modalities with good tolerance. Pt demonstrated improved subjective report of pain, lumbar AROM, hip strength and GISELA score this date compared to the initial evaluation. Overall the pt has met all PT goals and is appropriate to discharge to independent [facility]. Patient goals met ST LT/4 Goals Not Met n/a Revised Goals n/a Plan Plan Discharge to independent [facility] Time and Billing Re-Eval Time 12 Re-Eval Billing Units 0 Charge for PT reassessment? No Charge for OT reassessment? No PHYSICIAN CERTIFICATION: I certify the specified therapy services for Barbi Adams are required, authorized, and reviewed every 30 days.
== END 2024-04-23 23:59 | disposition home or self-care (01) ==
LOC: PT 15:00
PROVIDERS: Visit Provider Internal Medicine
DX: M54.50 Low back pain, unspecified (principal); M25.551 Pain in right hip; M25.552 Pain in left hip
CPT/HCPCS: 97014; 97110; 97163; G0283

== ENCOUNTER 2024-04-25 10:42 | Outpatient (CLI) | payer MEDICARE, BC, SELFPAY ==
[2024-04-26 10:12] LABS: Magnesium 2.1 mg/dl (1.6-2.3)
[2024-04-26 10:47] LABS: Ferritin 88.4 ng/ml (11.1-264)
== END 2024-04-25 23:59 | disposition home or self-care (01) ==
LOC: LAB.DROPOF 04-26 10:43
PROVIDERS: PCP Internal Medicine; Visit Provider Internal Medicine
DX: M25.531 Pain in right wrist (principal); M25.532 Pain in left wrist; G25.81 Restless legs syndrome; R53.83 Other fatigue; R11.0 Nausea; Z79.899 Other long term (current) drug therapy; M79.641 Pain in right hand; M25.511 Pain in right shoulder
CPT/HCPCS: 82728; 83735

== ENCOUNTER 2024-06-06 13:40 | Outpatient (CLI) | payer MEDICARE, SELFPAY ==
--- NOTE | 2024-06-06 13:46 | XR_ITS ---
FINAL REPORT CLINICAL HISTORY: Hand/wrist pain COMPARISON: None FINDINGS: RIGHT HAND Two views of the right hand were obtained. There is no acute fracture or dislocation. There is mild DIP and PIP joint space narrowing consistent with osteoarthritis. There is no acute soft tissue abnormality. IMPRESSION: Findings consistent with osteoarthritis. Reviewed, Interpreted and Dictated by Vikash Camp MD Transcribed by Ondina Coats Authenticated and [facility]
--- NOTE | 2024-06-06 13:46 | XR_ITS ---
FINAL REPORT CLINICAL HISTORY: Hand/wrist pain COMPARISON: None FINDINGS: LEFT HAND Two views of the left hand were obtained. There is no acute fracture or dislocation. There are moderate hypertrophic changes of osteoarthritis at the second and third DIP joints consistent with osteoarthritis. There is no acute soft tissue abnormality. IMPRESSION: Findings consistent with osteoarthritis. Reviewed, Interpreted and Dictated by Vikash Camp MD Transcribed by Ondina Coats Authenticated and [facility]
== END 2024-06-06 23:59 | disposition home or self-care (01) ==
LOC: RAD 13:43
PROVIDERS: PCP Internal Medicine; Visit Provider Internal Medicine
DX: M25.531 Pain in right wrist (principal); M25.532 Pain in left wrist; M25.541 Pain in joints of right hand; M25.542 Pain in joints of left hand
CPT/HCPCS: 73120

== ENCOUNTER 2024-12-23 14:21 | Outpatient (CLI) | payer MEDICARE, SELFPAY ==
--- OUTSIDE RECORDS SUMMARY | 2024-12-23 14:25 | XMS_ITS | Clinical Summary ---
Author Organization [facility] Address [address] [facility] [place] [address] Phone Care Team Providers Care Program Engineer Name Role Phone Unavailable Primary Care Provider Unavailabl e Social History Tobacco Use Types Packs/Day Years Used Date Smoking Tobacco: Never Assessed Comments Unknown Sex and Gender Information Value Date Recorded Sex Assigned at Not on file Legal Sex Female 8:34 AM EDT Gender Identity Not on file Sexual Orientation Not on file Plan of Treatment Health Maintenance Due Date Last Done Comments Annual Wellness Exam 1956 Hepatitis C Screening 1971 DTaP/TDaP/Td (1 - Tdap) 1972 Cologuard 1998 Colon Cancer Screening 1998 Colonoscopy 1998 FIT 1998 Sigmoidoscopy 1998 Virtual Colonography 1998 Pneumococcal Vaccine 50+ (1 of 1 - PCV) 2003 Zoster (1 of 2) 2003 Bone Density Screening 2018 COVID-19 Vaccine (2023-2 5 season) 2024 Influenza Vaccine (#1) 2025 Hepatitis B Vaccine Aged Out No longe r eligible based on patient's age to complete this topic Meningococcal B Vaccine Aged Out No l onger eligible based on patient's age to complete this topic
--- OUTSIDE RECORDS SUMMARY | 2024-12-23 14:25 | XMS_ITS | Clinical Summary ---
Author Organization [facility] Address [address] [place] [address] Care Team Providers Care Entry Specialist Name Role Phone James Miguel MD Primary Care Provider + Allergies No known active allergies Medications aspirin 81 MG EC tablet Take 81 mg by mouth Daily. Active Multiple Vitamin (MULTI VITAMIN DAILY PO) Take by mouth. Active bisoprolol (ZEBeta) 2.5 MG half tablet Take 2.5 mg by mouth Daily. Active calcium carbonate-vitami n d (CALCIUM 600+D) 600-400 MG-UNIT per tablet Take 1 tablet by mouth Daily. Active Probiotic Product (PROBIOTIC-10 PO) Take 1 tablet by mouth Daily. Active omeprazole (priLOSEC) 20 MG capsule Take 20 mg by mouth As Needed. Active valsartan-hydroc hlorothiazide (DIOVAN-HCT) 160-12.5 MG per tablet Take 1 tablet by mouth Daily. 07/15/2021 Active rosuvastatin (CRESTOR) 10 MG tablet Take 10 mg by mouth Daily. 07/11/2021 Active Active Problems Problem Noted Date Diagnosed Date Osteopenia of left femoral neck 07/13/2020 Fibrocystic breast changes, bilateral 07/13/2020 OAB (overactive bladder) 03/06/2018 PVC (premature ventricular contraction) Menopause Hypertension Atrophic vaginitis Resolved Problems Problem Noted Date Diagnosed Date Resolved Date Vaginal atrophy 08/03/2016 07/13/2020 Osteopenia 07/13/2020 Atrophic vaginitis 7 Family History Medical History Relation Name Comments Colon cancer Father Relation Name Status Comments Father Social History Tobacco Use Types Packs/Day Years Used Date Smoking Tobacco: Former Smokeless Tobacco: Never Alcohol Use Standard Drinks/Week Comments Yes 0 (1 standard drink = 0.6 oz pur e alcohol) occasionally Abuse Screen Answer Date Recorded Unsafe at Home or Work/School Not on file Feels Threatened by Someone? Not on file 01/2023 Does Anyone Keep You from Co ntacting Others or Doint Things Outside the Home? Not on file 02/13/2023 Physical Sign of Abuse Present Not on file 1 Housing Stability Answer Date Recorded Current Living Arrangements Not on file 01/2023 Potentially Unsafe Housing Conditions Not on noemi e 02/13/2023 Family and Community Support Answer Eliezer e Recorded Help with Day-to-Day Activities Not on file 02/13/2023 Lonely or Isolated Not on file 02/13/2023 Employment Answer Date Recorded Do you want help finding or keeping work or a jesse b? Not on file 02/13/2023 Disabilities Answer Date Recorded Concentrating, Remembering, or Making Decisions Difficulty Not on file 02/13/2023 Doing Errands Independently Difficulty Not on fi le 02/13/2023 Education Answer Date Recorded Help with school or training? Not on file Preferred Language Not on file 02/13/2023 Comments No Sex and Gender Information Value Date Recorded Sex Assigned at Not on file Legal Sex Female 10:04 AM EDT Gender Identity Not on file Sexual Orientation Not on file Last Filed Vital Signs Vital Sign Reading Time Taken Comments Blood Pressure 160/78 07/19/2021 10:09 AM EDT Pulse - - Temperature 36.9 C (98.4 F) 07/13/2020 3:27 PM EST Respiratory Rate - - Oxygen Saturation - - Inhaled Oxygen Concentration - - Weight 74 kg (163 lb 3.2 oz) 07/19/2021 10:09 AM EDT Height 163.8 cm (5' 4.5 ) 07/19/2021 10:09 AM ED T Body Mass Index 27.58 07/19/2021 10:09 AM EDT Plan of Treatment Health Maintenance Due Date Last Done Comments TDAP/TD VACCINES (1 - Tdap) 1972 COLOGUARD 1998 COLON CANCER SCREENING 5 YEJanneth Murphy SIGMOIDOSCOPY 1998 COLONOSCOPY 1998 [address] CANCER SCREENING 1998 CT COLONOGRAPHY 1998 FECAL OCCULT BLOOD TEST 1998 FIT Testing (1 year) 1998 Pneumococcal Vaccine 50+ (1 of 1 - PCV) 2003 ANNUAL PHYSICAL 06/29/2016 HEPATITIS C SCREENING 06/29/2016 ZOSTER VACCINE (2 of 2) 09/21/2020 07/27/2020 DXA SCAN 08/12/2023 08/11/2021, 08/03/2016 MAMMOGRAM 08/12/2023 08/11/2021, 04/0 10/2021, 07/21/2020, Additional history exists COVID-19 Vaccine ( - 2023-2 5 season) 2024 01/13/2021, 07/03/2020, 06/10/2020 INFLUENZA VACCINE 02/05/2025 02/21/2022, , 02/15/2021, Additional history exists Procedures Procedure Name Priority Date/Time Associated Diagnosis Comments SCANNED - MAMMO 07/21/2020 DEXA BONE DENSITY AXIAL Routine 08/03/2016 10:13 AM EDT Osteopenia from Last 3 Months or Most Recently Relevant to Health Maintenance Results * SCANNED - MAMMO (07/21/2020) Anatomical Region Laterality Modality Other Jonathan Nelson MD CHART REVIEW TABS Winnie l Result * dexa bone density axial (08/03/2016 10:13 AM EDT) Anatomical Region Laterality Modality Wrist, Hip, L-spine N/A Other 08/03/2016 3:07 PM EDT Impressions 08/03/2016 3:09 PM EDT The patient has low bone mass or osteopenia based on the right femoral neck T score. The ten year fracture risk assessment is calculated at 8.4% for major systemic osteoporotic fracture and 0.7% for a hip fracture. Less than 3% risk in the [place] for hip fracture and less than 20% risk of any systemic osteoporotic fracture is considered less than the threshold for where pharmacological therapy is recommended by the National Osteoporosis Foundation. All the treatment decisions require clinical judgment and consideration of individual patient factors, including patient preferences, co-morbidities, previous drug use, risk factors not captured in the FRAX model (frailty, falls, vitamin D deficiency, increased bone turnover, interval significant decline in bone density) and possible under or over estimation of fracture risk by FRAX. Approaches to reduce osteoporosis related fracture risk include optimizing calcium and vitamin D status, appropriate weight bearing exercises and fall-prevention measurements. The National Osteoporosis Foundation recommends (http://www.nof.org/hcp/practice/xjfhvzpu-jok-eivczslc-guidelines/clinic ans-guide) that FDA-approved medical therapies be considered in postmenopaual women and men aged equal or greater than 50 years with : a) hip or vertebral (clinical or morphometric) fracture; b) T-score of -2.5 or less at the spine or hip; c) Ten-year fracture probability by FRAX of greater than 3% for hip fracture of greater than 20% for major osteoporotic fracture. Secondary causes of bone loss should be evaluated if clinically indicated since the etiology of low BMD cannot be determined by BMD measurement alone. FOLLOWUP: Consider repeating the study in 2-3 years to reassess the patient's status or sooner if there is some new clinical indication. INTERVAL CHANGE: Compared to the prior exam done on 07/20/2011 there has been no statistically significant change for measurements involving the lumbar spine or the right total hip. There has been a statistically significant 5.7% change for measurements involving the right femoral neck region.. At this facility, the least significant change in the BMD at the lumbar spine with 95% confidence is 0.0010 g/cm2. The least significant change in the BMD at the femoral neck with 95% confidence is 0.014 g/cm2. The least significant change in the BMD at the total femur with 95% confidence is 0.012 g/cm2. This report was finalized on 08/03/2016 3:[address] Kary Benitez MD. Narrative 08/03/2016 3:09 PM EDT DUAL-ENERGY X-RAY ABSORPTIOMETRY (DXA) INDICATION: 61-year-old postmenopausal patient. The patient reports taking vitamin D and calcium. The patient reports a history of having taken glucocorticoids. COMPARISON: 07/20/2011 PROCEDURE: A BMD test was performed using the [employer] DXA System manufactured by [employer]. The lumbar spine was evaluated as well as the right total hip. The T-score compares the patient's bone mineral density with the peak bone mass of young normal patients. According to criteria established by the World Health Organization, patients with T-scores between 1.0 and 2.5 standard deviations BELOW the mean are osteopenic (low bone mass). Patients with T-scores EQUAL TO OR GREATER than 2.5 standard deviations below the mean are osteoporotic. The Z-score compares the patient bone mineral density with age and sex matched peers. According to the International Society for Clinical Densitometry's 2007 consensus conference: In women prior to menopause and men less than age 50, Z-scores, not T-scores are preferred. A Z-score of -2.0 or lower is defined as below the expected range for age and a Z-score above -2.0 is within the expected range for age. The WHO diagnostic criteria may be applied in women in the menopausal transition. Osteoporosis cannot be diagnosed in men under age 50 on the basis of BMD alone. TECHNICAL QUALITY: The study is of good technical quality. RESULTS: Lumbar Spine: The BMD measured in the L1-L4 region is 1.324 g/cm2. The average T-score is 1.2. The Z-score is 2.5. Total Hip: The BMD measured at the right total proximal femur is 0.913 g/cm2. The T-score is -0.8. The Z-score is 0.2. Femoral Neck: The BMD measured at the right femoral neck is 0.847 g/cm2. The T-score is -1.4. The Z-score is -0.1. Procedure Note Kary Benitez MD - 08/03/2016 DUAL-ENERGY X-RAY ABSORPTIOMETRY (DXA) INDICATION: 61-year-old postmenopausal patient. The patient reports taking vitamin D and calcium. The patient reports a history of having taken glucocorticoids. COMPARISON: 07/20/2011 PROCEDURE: A BMD test was performed using the [employer] DXA System manufactured by [employer]. The lumbar spine was evaluated as well as the right total hip. The T-score compares the patient's bone mineral density with the peak bone mass of young normal patients. According to criteria established by the World Health Organization, patients with T-scores between 1.0 and 2.5 standard deviations BELOW the mean are osteopenic (low bone mass). Patients with T-scores EQUAL TO OR GREATER than 2.5 standard deviations below the mean are osteoporotic. The Z-score compares the patient bone mineral density with age and sex matched peers. According to the International Society for Clinical Densitometry's 2007 consensus conference: In women prior to menopause and men less than age 50, Z-scores, not T-scores are preferred. A Z-score of -2.0 or lower is defined as below the expected range for age and a Z-score above -2.0 is within the expected range for age. The WHO diagnostic criteria may be applied in women in the menopausal transition. Osteoporosis cannot be diagnosed in men under age 50 on the basis of BMD alone. TECHNICAL QUALITY: The study is of good technical quality. RESULTS: Lumbar Spine: The BMD measured in the L1-L4 region is 1.324 g/cm2. The average T-score is 1.2. The Z-score is 2.5. Total Hip: The BMD measured at the right total proximal femur is 0.913 g/cm2. The T-score is -0.8. The Z-score is 0.2. Femoral Neck: The BMD measured at the right femoral neck is 0.847 g/cm2. The T-score is -1.4. The Z-score is -0.1. IMPRESSION: The patient has low bone mass or osteopenia based on the right femoral neck T score. The ten year fracture risk assessment is calculated at 8.4% for major systemic osteoporotic fracture and 0.7% for a hip fracture. Less than 3% risk in the [place] for hip fracture and less than 20% risk of any systemic osteoporotic fracture is considered less than the threshold for where pharmacological therapy is recommended by the National Osteoporosis Foundation. All the treatment decisions require clinical judgment and consideration of individual patient factors, including patient preferences, co-morbidities, previous drug use, risk factors not captured in the FRAX model (frailty, falls, vitamin D deficiency, increased bone turnover, interval significant decline in bone density) and possible under or over estimation of fracture risk by FRAX. Approaches to reduce osteoporosis related fracture risk include optimizing calcium and vitamin D status, appropriate weight bearing exercises and fall-prevention measurements. The National Osteoporosis Foundation recommends (http://www.nof.org/hcp/practice/pbngazou-obc-trslzicc-guidelines/clinic ans-guide) that FDA-approved medical therapies be considered in postmenopaual women and men aged equal or greater than 50 years with : a) hip or vertebral (clinical or morphometric) fracture; b) T-score of -2.5 or less at the spine or hip; c) Ten-year fracture probability by FRAX of greater than 3% for hip fracture of greater than 20% for major osteoporotic fracture. Secondary causes of bone loss should be evaluated if clinically indicated since the etiology of low BMD cannot be determined by BMD measurement alone. FOLLOWUP: Consider repeating the study in 2-3 years to reassess the patient's status or sooner if there is some new clinical indication. INTERVAL CHANGE: Compared to the prior exam done on 07/20/2011 there has been no statistically significant change for measurements involving the lumbar spine or the right total hip. There has been a statistically significant 5.7% change for measurements involving the right femoral neck region.. At this facility, the least significant change in the BMD at the lumbar spine with 95% confidence is 0.0010 g/cm2. The least significant change in the BMD at the femoral neck with 95% confidence is 0.014 g/cm2. The least significant change in the BMD at the total femur with 95% confidence is 0.012 g/cm2. This report was finalized on 08/03/2016 3:[address] Kary Benitez MD. Jonathan Nelson MD [facility] [place]XA ORDERABLES Final Result from Last 3 Months or Most Recently Relevant to Health Maintenance Insurance MEDICARE A & B Member Subscriber Plan / Payer (Ef fective 2018-Present) Name:Barbi Adams Member ID:[id number] Relation to Subscriber:Self Name:Barbi Adams Subscriber ID:[id number] Payer ID:[id number] Group ID:Not on file Type:Not on file Address: [address] Care Teams Entry Specialist Relationship Specialty Start Date End Date James Miguel MD PCP - General 07/29/15
--- NOTE | 2024-12-23 14:45 | MM_ITS ---
PROCEDURE INFORMATION: Exam: MG Bilateral Screening 3D Mammography Exam date and time: 12/23/2024 2:48 PM Age: 69 years old Clinical indication: Screening examination. TECHNIQUE: Imaging protocol: Bilateral Screening tomosynthesis and 2D mammography including computer-aided detection (CAD) when performed. COMPARISON: MG MM DIG SCREENING MAMM BI W/CAD 11/03/2023 8:06 AM FINDINGS: MAMMOGRAPHY: Breast composition: There are scattered areas of fibroglandular density. Mass: None. Architectural distortion: None. Calcifications: No suspicious calcifications. Asymmetric density: None. Skin thickening: None. Axillary adenopathy: None. IMPRESSION: No mammographic evidence of malignancy. Annual screening is recommended unless otherwise clinically indicated. ASSESSMENT: BI-RADS Category 1: Negative.
== END 2024-12-23 23:59 | disposition home or self-care (01) ==
LOC: RAD 14:22
PROVIDERS: PCP Nurse Practitioner Family; Visit Provider Internal Medicine
DX: Z12.31 Encounter for screening mammogram for malignant neoplasm of breast (principal); R92.323 Mammographic fibroglandular density, bilateral breasts
CPT/HCPCS: 77063; 77067

== ENCOUNTER 2025-01-01 16:10 | Outpatient (CLI) | payer MEDICARE, SELFPAY ==
[2025-01-01 17:40] LABS: Hematocrit 41.9 % (37.0-47.0); Hemoglobin 13.9 g/dL (12.2-16.2); Immature Granulocytes % 0.2 %; Mean Corpuscular HGB Conc 33.2 g/dL (31.8-35.4); Mean Corpuscular Hemoglobin 29.8 pg (27.0-31.2); Mean Corpuscular Volume 89.7 fl (81-99); Nucleated Red Blood Cells % 0 %; Platelet Count 365 K/mm3 (142-424); Red Blood Count 4.67 M/mm3 (4.20-5.40); Red Cell Distribution Width-SD 42.4 fL; White Blood Count 9.2 K/mm3 (4.8-10.8)
[2025-01-01 18:21] LABS: Chloride 104 mmol/L (98-107)
[2025-01-01 18:22] LABS: Albumin Level 4.7 g/dl (3.5-5.0); Potassium 4.4 mmoL/L (3.5-5.1); Sodium 142 mmol/L (136-145)
[2025-01-01 18:24] LABS: Blood Urea Nitrogen 21 mg/dl (7-17); Creatinine,Serum 1.00 mg/dl (0.52-1.04); Estimated Glomerular Filt Rate 55 ml/min (>60); GFR (African American) 66 ML/MIN (>60)
[2025-01-01 18:25] LABS: Alanine Aminotransferase 18 U/L (12-78); Albumin/Globulin Ratio 1.7 (1.1-1.8); Alkaline Phosphatase 101 U/L (38-126); Anion Gap 15.4 mEq/L (5-15); Aspartate Amino Transferase 32 U/L (14-36); Bilirubin,Total 0.6 mg/dl (0.2-1.3); Calcium 10.4 mg/dl (8.4-10.2); Carbon Dioxide 27 mmol/L (22.0-30.0); Cholesterol 179 mg/dl (140-200); Globulin 2.7 g/dL (1.3-3.2); Glucose 98 mg/dl (74-100); Magnesium 2.0 mg/dl (1.6-2.3); Total Protein,Serum 7.4 g/dl (6.3-8.2); Triglycerides 108 mg/dl (30-150)
[2025-01-01 18:26] LABS: HDL Cholesterol 67 mg/dl (40-60)
[2025-01-01 18:42] LABS: 25-OH Vitamin D, Total 36.3 ng/mL (30-100)
[2025-01-01 18:55] LABS: Thyroid Stimulating Hormone 1.26 uIU/mL (0.465-4.68)
[2025-01-01 19:14] LABS: Vitamin B12 871 pg/mL (239-931)
--- OUTSIDE RECORDS SUMMARY | 2025-01-02 13:08 | XMS_ITS | Referral Summary ---
Author Organization [employer] ([place], [place], [place], [place] Address [address] [place] [address] Care Team Providers Care Acetylene Torch Operator Name Role Phone Unavailable Primary Care Provider Unavailabl e Social History Tobacco Use Types Packs/Day Years Used Date Smoking Tobacco: Never Assessed Comments Unknown Sex and Gender Information Value Date Recorded Sex Assigned at Female 11/02/2021 4:43 PM CDT Legal Sex Female 4:43 PM CDT Gender Identity Female 11/02/2021 4:43 PM CDT Sexual Orientation Not on file Plan of Treatment Not on file Procedures Procedure Name Priority Date/Time Associated Diagnosis Comments DXA BONE DENSITY SPINE AND HIP Routine 08/11/2021 11:28 AM EDT MM DIGITAL MAMMO SCREEN WITH SKY BILATERAL Routine 08/11/2021 11:28 AM EDT from Last 3 Months or Most Recently Relevant to Health Maintenance Results * MM digital mammo screen with sky bilateral (08/11/2021 11:28 AM EDT) Anatomical Region Laterality Modality Breast Bilateral Mammography 08/11/2021 11:2 8 AM EDT Narrative 08/11/2021 4:55 PM EDT PROCEDURE: Digital screening mammogram with tomosynthesis. REASON FOR EXAM: Routine screening. FAMILY HISTORY: No family history of breast cancer. COMPARISON STUDY: [facility] 06/19/2019, 07/21/2020. FINDINGS: Craniocaudal and mediolateral oblique images of both breasts were obtained in 2D, C-view, and 3D modes. The breast tissue is heterogeneously dense, which may obscure small masses. Right breast: Stable apparent fibroadenoma in the lower inner quadrant. No suspicious finding. Left breast: There is no dominant mass, architectural distortion, or suspicious calcifications. The mammogram was interpreted with the benefit of computer aided detection (CAD). FINAL IMPRESSION: ACR BI-RADS 2: Benign findings. RECOMMENDATIONS: Annual screening mammography. A letter including results and recommendations was sent to the patient. Density notification was included for patients with pattern 3 or 4 breast tissue. Patient information was entered into a reminder system with a target due date for the next mammogram. At our facility, a cherokee marker is positioned over a visible skin lesion and a linear marker is used to indicate a scar. A triangular marker is placed on a self reported palpable finding. D Procedure Note Deidre Clemente MD - 08/23/2022 PROCEDURE: Digital screening mammogram with tomosynthesis. REASON FOR EXAM: Routine screening. FAMILY HISTORY: No family history of breast cancer. COMPARISON STUDY: [facility] 06/19/2019, 07/21/2020. FINDINGS: Craniocaudal and mediolateral oblique images of both breasts were obtained in 2D, C-view, and 3D modes. The breast tissue is heterogeneously dense, which may obscure small masses. Right breast: Stable apparent fibroadenoma in the lower inner quadrant. No suspicious finding. Left breast: There is no dominant mass, architectural distortion, or suspicious calcifications. The mammogram was interpreted with the benefit of computer aided detection (CAD). FINAL IMPRESSION: ACR BI-RADS 2: Benign findings. RECOMMENDATIONS: Annual screening mammography. A letter including results and recommendations was sent to the patient. Density notification was included for patients with pattern 3 or 4 breast tissue. Patient information was entered into a reminder system with a target due date for the next mammogram. At our facility, a cherokee marker is positioned over a visible skin lesion and a linear marker is used to indicate a scar. A triangular marker is placed on a self reported palpable finding. D Deidre Clemente MD IMG MAMMOGRAPHY OR DERABLES Final Result * DXA bone density spine and hip (08/11/2021 11:28 AM EDT) Anatomical Region Laterality Modality Bone Radiographic Mery ging 08/11/2021 11:2 8 AM EDT Narrative 08/12/2021 11:32 PM EDT PROCEDURE: BONE DENSITOMETRY (DXA) REASON FOR EXAM: Postmenopausal female with low bone density RISK FACTORS: Estrogen deficiency COMPARISON STUDY: 2014 from [facility] FINDINGS: Bone densitometry was performed using a [employer] unit. Sites measured included the spine and left hip. Prior exam was performed on a different scanner. For this reason, absolute BMD values cannot be compared. The patient has developed degenerative changes at the L3-L4 level. For this reason, both vertebrae are excluded from the currently reported BMD of the lumbar spine. Using L1-2, the bone mineral density of the spine is 1.233 g/cm2. This corresponds to a T-score of 0.2 on the present exam, compared to a T-score of 0.34 L1-L4 previously. Using the femoral neck, the bone mineral density of the hip is 0.891 g/cm2. This corresponds to a T-score of -1.1 on the present exam, compared to a T-score of -1.3 previously. NOTE: T-score: standard deviation compared with peak bone mass of young adult mean. Z-score: standard deviation compared with age-matched mean. * Following the recommendations of the International Society of Bone Densitometry, classification of hip BMD is based upon the lower of two T-scores; total hip or femoral neck. FINAL IMPRESSION: LOW BONE DENSITY/OSTEOPENIA: Lowest T-score is between -1.0 and -2.5. FRAX (WHO FRACTURE ASSESSMENT TOOL): 10-year fracture risk for this patient is 0.8% at the hip and 8.6% for other sites. The National Osteoporosis Foundation Clinician's Guide, published in June 2007, suggests pharmacologic intervention when the risk of hip fracture reaches 3% (or 20% for ANY osteoporotic fracture). *FRAX can be assessed on the internet at www.shef.ac.uk/FRAX PREVENTION//FOLLOW-UP GUIDELINES: Ensure adequate Calcium and Vitamin D intake/supplementation. Encourage weight bearing exercise. RECOMMENDATION: Follow-up DXA in 2 years is advised. Procedure Note Julieta Bhatia MD - 08/23/2022 PROCEDURE: BONE DENSITOMETRY (DXA) REASON FOR EXAM: Postmenopausal female with low bone density RISK FACTORS: Estrogen deficiency COMPARISON STUDY: 2015 from [facility] FINDINGS: Bone densitometry was performed using a [employer] unit. Sites measured included the spine and left hip. Prior exam was performed on a different scanner. For this reason, absolute BMD values cannot be compared. The patient has developed degenerative changes at the L3-L4 level. For this reason, both vertebrae are excluded from the currently reported BMD of the lumbar spine. Using L1-2, the bone mineral density of the spine is 1.233 g/cm2. This corresponds to a T-score of 0.2 on the present exam, compared to a T-score of 0.34 L1-L4 previously. Using the femoral neck, the bone mineral density of the hip is 0.891 g/cm2. This corresponds to a T-score of -1.1 on the present exam, compared to a T-score of -1.3 previously. NOTE: T-score: standard deviation compared with peak bone mass of young adult mean. Z-score: standard deviation compared with age-matched mean. * Following the recommendations of the International Society of Bone Densitometry, classification of hip BMD is based upon the lower of two T-scores; total hip or femoral neck. FINAL IMPRESSION: LOW BONE DENSITY/OSTEOPENIA: Lowest T-score is between -1.0 and -2.5. FRAX (WHO FRACTURE ASSESSMENT TOOL): 10-year fracture risk for this patient is 0.8% at the hip and 8.6% for other sites. The National Osteoporosis Foundation Clinician's Guide, published in June 2007, suggests pharmacologic intervention when the risk of hip fracture reaches 3% (or 20% for ANY osteoporotic fracture). *FRAX can be assessed on the internet at www.shef.ac.uk/FRAX PREVENTION//FOLLOW-UP GUIDELINES: Ensure adequate Calcium and Vitamin D intake/supplementation. Encourage weight bearing exercise. RECOMMENDATION: Follow-up DXA in 2 years is advised. Julieta Bhatia MD [facility] [place] Final Resul t from Last 3 Months or Most Recently Relevant to Health Maintenance Insurance SHANI GLYNN ADV
--- OUTSIDE RECORDS SUMMARY | 2025-01-02 13:08 | XMS_ITS | Clinical Summary ---
Author Organization [facility] Address [address] [place] [address] Care Team Providers Care Manager Reliability Name Role Phone James Miguel MD Primary [...] fall-prevention measurements. The National Osteoporosis Foundation recommends (http://www.nof.org/hcp/practice/grhispqu-bzy-uhrwhxhk-guidelines/clinic ans-guide) that FDA-approved medical therapies be considered [...] A BMD test was performed using the [employer] DXA System manufactured by [employer] The lumbar spine was evaluated as well [...] A BMD test was performed using the [employer] DXA System manufactured by [employer] The lumbar spine was evaluated as well [...] fall-prevention measurements. The National Osteoporosis Foundation recommends (http://www.nof.org/hcp/practice/axfzpwlr-mca-cpszqjnr-guidelines/clinic ans-guide) that FDA-approved medical therapies be considered [...] Dr. Kary Benitez MD. Jonathan Nelson MD [facility] [place] DXA ORDERABLES Final Result from Last 3 Months or Most Recently Relevant to Health Maintenance Insurance MEDICARE A & B Member Subscriber Plan / Payer (Ef fective 2018-Present) Name:Barbi Adams Member ID:[id number] Relation to Subscriber:Self Name:Barbi Adams Subscriber ID:[id number] Payer ID:[id number] Group ID:Not on file Type:Not on file Address: [address] Care Teams Manager Reliability Relationship Specialty Start Date End Date James Miguel MD PCP - General 07/29/15
--- OUTSIDE RECORDS SUMMARY | 2025-01-02 13:08 | XMS_ITS | Encounter Summary ---
Author Organization [employer] ([place], [place], [place], [place]) Address [address] [place] [address] Care Team Providers Care Vacuum Kettle Cook Name Role Phone Unavailable Primary Care Provider Unavailabl e Encounter Details Date Type Department Care Team (Late st Contact Info) Description 07/19/[address] [facility] Central Scheduling [address] [place] [address] Olga Kelley APRN [address] [facility] [address] [place] [address] Visit for screening mammogram (Primary Dx) Social History Tobacco Use Types Packs/Day Years Used Date Smoking Tobacco: Never Assessed Comments Unknown Sex and Gender Information Value Date Recorded Sex Assigned at Female 11/02/2021 4:43 PM CDT Legal Sex Female 4:43 PM CDT Gender Identity Female 11/02/2021 4:43 PM CDT Sexual Orientation Not on file documented as of this encounter Plan of Treatment Not on file documented as of this encounter Visit Diagnoses Diagnosis Visit for screening mammogram- Primary documented in this encounter
--- OUTSIDE RECORDS SUMMARY | 2025-01-02 13:08 | XMS_ITS | Clinical Summary ---
Author Organization [facility] Address [facility] [place] [address] Phone Care Team Providers Care Quill Worker Name Role Phone Unavailable Primary Care Provider [...]
--- OUTSIDE RECORDS SUMMARY | 2025-01-02 13:08 | XMS_ITS | Clinical Summary ---
Author Organization [employer] ([place], [place], [place], [place]) Address [address] [place] [address] Care Team Providers Care Customer Account Manager Name Role Phone Unavailable Primary Care Provider [...] Health Maintenance Due Date Last Done Comments CT Colonography 1953 Colonoscopy 1953 Colorectal Cancer Screening 1953 FOBT/FIT 1953 Fit-DNA (Cologuard) 1953 Sigmoidoscopy 1953 Depression Screening (12+) 1965 Tobacco Cessation Counseling and Screening (12+) 1965 DTAP/TDAP/TD VACCINES (1 - Tdap) 1972 Pneumococcal 50+ years (1 of 1 - PCV) 2003 Shingles Vaccine (Zoster) (2 of 2) 09/21/20202020 Breast Cancer Screening 08/12/2023 08/12/19 22, 07/21/2020, 06/19/2019 DXA SCAN 08/12/2023 08/11/2021 COVID-19 VACCINE (2023-2 5 season) 2024 02/02/2022, 10/27/2021, 01/13/2021, Additional history exists Falls Risk Screening 05/08/2024 Influenza Vaccine (#1) 2025 2, 02/15/2021, 01/31/2020, Additional history exists Respiratory Syncytial Virus (RSV) Adult or (1 - 1-dose 75+ series) 2028 Procedures Procedure Name Priority Date/Time Associated Diagnosis [...] family history of breast cancer. COMPARISON STUDY: [facility] 06/19/2019, 07/21/2020. FINDINGS: Craniocaudal and mediolateral [...] the next mammogram. At our facility, a [place] marker is positioned over a visible skin lesion and a linear marker is used to indicate a scar. A triangular marker is placed on a self reported palpable finding. D Procedure Note Deidre Clemente MD - 08/23/2022 PROCEDURE: Digital screening mammogram with tomosynthesis. REASON FOR EXAM: Routine screening. FAMILY HISTORY: No family history of breast cancer. COMPARISON STUDY: [facility] 06/19/2019, 07/21/2020. FINDINGS: Craniocaudal and mediolateral [...] the next mammogram. At our facility, a [place] marker is positioned over a visible skin [...] FACTORS: Estrogen deficiency COMPARISON STUDY: 2014 from [facility] FINDINGS: Bone densitometry was performed using a [email or web address] unit. Sites measured included the spine and [...] FACTORS: Estrogen deficiency COMPARISON STUDY: 2014 from [facility] FINDINGS: Bone densitometry was performed using a [email or web address] unit. Sites measured included the spine and [...] Follow-up DXA in 2 years is advised. us Julieta Bhatia MD IM DXA ORDERABLES Final Resul t from Last 3 Months or Most Recently Relevant to Health Maintenance Insurance [facility] NABILA GLYNN ADV
== END 2025-01-01 23:59 | disposition home or self-care (01) ==
LOC: LAB.DROPOF 01-02 13:06
PROVIDERS: PCP Nurse Practitioner Family; Visit Provider Nurse Practitioner Family
DX: M25.50 Pain in unspecified joint (principal); I10 Essential (primary) hypertension; E03.9 Hypothyroidism, unspecified; M85.80 Other specified disorders of bone density and structure, unspecified site; E78.5 Hyperlipidemia, unspecified
CPT/HCPCS: 80053; 80061; 82306; 82607; 83735; 84443; 85025